=== PATIENT | male | born 1965 | race African-American/Black ===

== ENCOUNTER 2021-04-07 08:08 | Outpatient (CLI) | payer BC, SELFPAY ==
--- NOTE | 2021-04-07 12:00 | NEURO_ITS ---
Impression: # Complains of pain and weakness in right upper extremity. # Subtle evolving right Carpal Tunnel Syndrome. # Right ulnar neuropathy across the elbow. # Normal needle/EMG exam. # Clinical correlation recommended. Nerve Conduction Studies Anti Sensory Summary Table Stim Site NR Peak (ms) P-T Amp (?V) Site1 Site2 Delta-P (ms) Dist (cm) Kamran (m/s) Left Median Anti Sensory (2-3nd Digit) Wrist 3.1 23.6 Wrist 2-3nd Digit 3.1 14.0 45 Wrist 3.1 34.5 Wrist 2-3nd Digit 3.1 14.0 45 Right Median Anti Sensory (2-3nd Digit) Wrist 3.4 63.1 Wrist 2-3nd Digit 3.4 14.0 41 Wrist 3.4 58.0 Wrist 2-3nd Digit 3.4 14.0 41 Left Radial Anti Sensory (Base 1st Digit) Wrist 2.2 20.5 Wrist Base 1st Digit 2.2 0.0 Right Radial Anti Sensory (Base 1st Digit) Wrist 2.2 16.7 Wrist Base 1st Digit 2.2 0.0 Left Ulnar Anti Sensory (5th Digit) Wrist 2.8 26.8 Wrist 5th Digit 2.8 14.0 50 Right Ulnar Anti Sensory (5th Digit) Wrist 2.7 32.5 Wrist 5th Digit 2.7 14.0 52 Motor Summary Table Stim Site NR Onset (ms) O-P Amp (mV) Site1 Site2 Delta-0 (ms) Dist (cm) Kamran (m/s) Left Median Motor (Abd Poll Brev) Wrist 3.4 5.9 Elbow Wrist 5.6 32.0 57 Elbow 9.0 5.1 Right Median Motor (Abd Poll Brev) Wrist 3.8 5.4 Elbow Wrist 5.3 30.0 57 Elbow 9.1 5.0 Left Ulnar Motor (Abd Dig Minimi) Wrist 2.7 7.1 A Elbow Wrist 5.7 34.0 60 A Elbow 8.4 5.2 Right Ulnar Motor (Abd Dig Minimi) Wrist 2.2 7.8 A Elbow Wrist 6.5 32.0 49 A Elbow 8.7 5.7 B Elbow Wrist 4.4 24.0 55 B Elbow 6.6 6.7 F Wave Studies NR F-Lat (ms) L-R F-Lat (ms) Left Median (Mrkrs) (Abd Poll Brev) 30.94 0.12 Right Median (Mrkrs) (Abd Poll Brev) 31.05 0.12 Left Ulnar (Mrkrs) (Abd Dig Min) 31.74 0.08 Right Ulnar (Mrkrs) (Abd Dig Min) 31.82 0.08 EMG Side Muscle Nerve Root Ins Act Fibs Amp Dur Recrt Comment Right 1stDorInt Ulnar C8-T1 Nml Nml Nml Nml Nml Right Ext Indicis Radial (Post Int) C7-8 Nml Nml Nml Nml Nml Right Ext Digitorum Radial (Post Int) C7-8 Nml Nml Nml Nml Nml Right BrachioRad Radial C5-6 Nml Nml Nml Nml Nml Right PronatorTeres Median C6-7 Nml Nml Nml Nml Nml Right Abd Poll Brev Median C8-T1 Nml Nml Nml Nml Nml Left 1stDorInt Ulnar C8-T1 Nml Nml Nml Nml Nml Left Ext Indicis Radial (Post Int) C7-8 Nml Nml Nml Nml Nml Left Ext Digitorum Radial (Post Int) C7-8 Nml Nml Nml Nml Nml Left BrachioRad Radial C5-6 Nml Nml Nml Nml Nml Left PronatorTeres Median C6-7 Nml Nml Nml Nml Nml Left Abd Poll Brev Median C8-T1 Nml Nml Nml Nml Nml MTDD
== END 2021-04-07 08:09 | disposition home or self-care (01) ==
LOC: ANHNEURO 08:14
PROVIDERS: PCP Family Medicine; Visit Provider Orthopaedic Surgery
DX: G56.01 Carpal tunnel syndrome, right upper limb (principal); G56.21 Lesion of ulnar nerve, right upper limb; R20.0 Anesthesia of skin
CPT/HCPCS: 95886; 95911

== ENCOUNTER 2021-10-01 14:23 | Outpatient (CLI) | payer BC, SELFPAY ==
--- NOTE | ~2021-10-01 | MR_ITS ---
EXAMINATION: MR thoracic spine wo con EXAM DATE: 10/01/2021 15:10 INDICATION: Back pain. TECHNIQUE: Multi-sequential, multiplanar MR images of the thoracic spine were obtained without contra st. Sagittal T1, T2, T2 fat saturation, axial T2 weighted images reviewed. There is no prior study for comparison. FINDINGS: The vertebral bodies are aligned in the AP dimension. Vertebral body and disc heights are w ell-maintained. The spinal cord signal intensity and intrinsic morphology is normal. There are no ruth ann picious marrow signal abnormalities. Paraspinal soft tissue is unremarkable. The thoracic neural fora men and central canal widely patent. IMPRESSION: Normal. Reviewed, dictated and finalized at location A. [employer] IMPRESSION: Normal.
== END 2021-10-01 14:24 | disposition home or self-care (01) ==
LOC: ANHIMG 14:26
PROVIDERS: PCP Family Medicine; Visit Provider Orthopaedic Surgery
DX: M54.6 Pain in thoracic spine (principal)
CPT/HCPCS: 72146